=== PATIENT | female | born 1990 | race Caucasian/White ===

== ENCOUNTER 2016-06-13 10:20 | Inpatient (IN) | payer OTHER ==
[~2016-06-13] VITALS: Ht 161.3 cm; Wt 76.0 kg
[2016-06-13 11:01] VITALS: BP 129/89
[2016-06-13 11:33] LABS: BLOOD UREA NITROGEN 8 mg/dL (7-18)
[2016-06-13 11:36] LABS: ASPARTATE AMINO TRANSFERASE 12 U/L (15-37)
[2016-06-13] MEDS ORDERED: MISOPROSTOL 25 MCG TABLET ONE ×3 (12:46→16:28)
[2016-06-13] MEDS ORDERED: OXYTOCIN 30U/ 0.9% NaCL 500ML 500 ML IV ONE (12:49)
[2016-06-13] MEDS ORDERED: MISOPROSTOL 25 MCG TABLET VG PRN (13:00)
[2016-06-13] MEDS ORDERED: FENTANYL PF 100 MCG/2ML IVPush PRN (13:00)
[2016-06-13] MEDS ORDERED: ONDANSETRON 2MG/ML, 2ML IVPush PRN (13:00)
[2016-06-13] MEDS ORDERED: FENTANYL PF 100 MCG/2ML IV PRN (13:00)
[2016-06-13] MEDS ORDERED: OXYTOCIN 30U/ 0.9% NaCL 500ML 500 ML ONE (14:53)
[2016-06-13] MEDS ORDERED: NEWBORN KIT ONE (14:53)
[2016-06-13] MEDS: LACTATED RINGERS 1,000 ML IV SCH ×2 (16:43→21:11)
[2016-06-13] MEDS ORDERED: ZOLPIDEM 5MG TABLET PO PRN (18:00)
[2016-06-13] MEDS: CLINDAMYCIN PMX 900MG/50ML 50 ML IVPB SCH ×2 (18:24→21:00)
[2016-06-14] MEDS ORDERED: CLINDAMYCIN PMX 900MG/50ML 50 ML ONE ×4 (01:15→17:39)
[2016-06-14] MEDS: CLINDAMYCIN PMX 900MG/50ML 50 ML IVPB SCH ×3 (01:30→17:43)
[2016-06-14] MEDS: D5%-LACTATED RINGERS 1,000 ML IV SCH ×3 (05:11→20:25)
[2016-06-14] MEDS ORDERED: OXYTOCIN 30U/ 0.9% NaCL 500ML 500 ML IV PRN (06:00)
[2016-06-14] MEDS ORDERED: LACTATED RINGERS 1,000 ML IV SCH ×2 (08:27)
[2016-06-14] MEDS ORDERED: OXYTOCIN 30U/ 0.9% NaCL 500ML 500 ML IV SCH (08:27)
[2016-06-14] MEDS ORDERED: DOCUSATE 100 MG CAPSULE PO PRN (08:30)
[2016-06-14] MEDS ORDERED: IBUPROFEN 600 MG TABLET PO PRN (08:30)
[2016-06-14] MEDS ORDERED: MISOPROSTOL 200 MCG TABLET PR PRN ×2 (08:30→18:30)
[2016-06-14] MEDS ORDERED: OXYcodone IR 5MG TABLET PO PRN (08:30)
[2016-06-14] MEDS ORDERED: ONDANSETRON 2MG/ML, 2ML IV PRN (08:30)
[2016-06-14] MEDS ORDERED: OXYcodone/APAP 5/325MG TABLET PO PRN (08:30)
[2016-06-14] MEDS ORDERED: KETOROLAC 30 MG/1 ML IV PRN (08:30)
[2016-06-14] MEDS ORDERED: morphine SULFATE 10 MG/ML, 1ML IVPush PRN (08:30)
[2016-06-14] MEDS ORDERED: PRENATAL VIT/IRON/FA 1 EACH TABLET PO SCH (09:00)
[2016-06-14] MEDS: ACYCLOVIR 800 MG TABLET HOMEMEDPO SCH (09:00)
[2016-06-14] MEDS ORDERED: LIDOCAINE 1%, 20ML ONE (09:42)
[2016-06-14] MEDS ORDERED: MISOPROSTOL 200 MCG TABLET ONE (09:42)
[2016-06-14] MEDS ORDERED: FENTANYL/BUPIV./NS/PF 250 ML EPIDCONT SCH (09:45)
[2016-06-14] MEDS ORDERED: BUPIVACAINE/PF 0.25% ONE (09:47)
[2016-06-14] MEDS ORDERED: FENTANYL/BUPIV./NS/PF 250 ML EPIDCONT ONE (09:47)
[2016-06-14] MEDS: LACTATED RINGERS 1,000 ML IV SCH ×5 (09:48→20:49)
[2016-06-14] MEDS ORDERED: LACTATED RINGERS 1,000 ML IVBOLUS PRN (10:00)
[2016-06-14] MEDS ORDERED: EPHEDRINE 50 MG/ML, 1ML IVPush PRN (10:00)
[2016-06-14] MEDS ORDERED: NALOXONE 0.4 MG/ML, 1ML IVPush PRN (10:00)
[2016-06-14] MEDS ORDERED: LACTATED RINGERS 1,000 ML INTUTE PRN (14:00)
[2016-06-14] MEDS ORDERED: LACTATED RINGERS 1,000 ML INTUTE SCH (14:00)
[2016-06-14] MEDS ORDERED: IBUPROFEN 600 MG TABLET ONE (18:29)
[2016-06-14] MEDS ORDERED: OXYTOCIN 30U/ 0.9% NaCL 500ML 500 ML ONE (18:59)
[2016-06-14] MEDS: IBUPROFEN 600 MG TABLET PO PRN ×2 (19:01→21:17)
[2016-06-14] MEDS: OXYTOCIN 30U/ 0.9% NaCL 500ML 500 ML IV SCH (19:01)
[2016-06-14 21:15] VITALS: BP 115/70
[2016-06-14] MEDS: OXYcodone/APAP 5/325MG TABLET PO PRN (21:28)
[2016-06-14 23:30] VITALS: BP 114/72
[2016-06-15] MEDS: IBUPROFEN 600 MG TABLET PO PRN ×4 (00:51→20:42)
[2016-06-15] MEDS: DOCUSATE 100 MG CAPSULE PO PRN ×3 (00:51→20:41)
[2016-06-15] MEDS: OXYcodone/APAP 5/325MG TABLET PO PRN ×6 (01:33→22:16)
[2016-06-15] MEDS: LACTATED RINGERS 1,000 ML IV SCH ×2 (01:45→09:45)
[2016-06-15 02:34] LABS: ANISOCYTOSIS 1+; HYPOCHROMIA 1+; LARGE PLATELETS 1+
[2016-06-15 03:00] VITALS: BP 126/84
[2016-06-15] MEDS: OXYTOCIN 30U/ 0.9% NaCL 500ML 500 ML IV SCH (04:24)
[2016-06-15 07:55] VITALS: BP 123/80
[2016-06-15] MEDS: ACYCLOVIR 800 MG TABLET HOMEMEDPO SCH (09:00)
[2016-06-15] MEDS: PRENATAL VIT/IRON/FA 1 EACH TABLET PO SCH (10:40)
[2016-06-15 20:00] VITALS: BP 127/81
[2016-06-16] MEDS: IBUPROFEN 600 MG TABLET PO PRN ×2 (02:45→09:50)
[2016-06-16] MEDS: OXYcodone/APAP 5/325MG TABLET PO PRN ×4 (02:46→15:05)
[2016-06-16 08:00] VITALS: BP 120/88
[2016-06-16] MEDS: ACYCLOVIR 800 MG TABLET HOMEMEDPO SCH (09:00)
[2016-06-16] MEDS: PRENATAL VIT/IRON/FA 1 EACH TABLET PO SCH (09:50)
[2016-06-16] MEDS: DOCUSATE 100 MG CAPSULE PO PRN (09:50)
[2016-06-16] MEDS ORDERED: OXYC-302 PO (12:42)
[2016-06-16] MEDS ORDERED: IBUP800T PO (12:43)
== END 2016-06-16 15:15 | disposition home or self-care (01) | DRG 774 ==
LOC: LDOP 10:20 → LDIP 13:03 → 2NW 06-14 20:39
PROVIDERS: ADMIT Obstetrics & Gynecology; ATTEND Obstetrics & Gynecology
PROC: 10E0XZZ Delivery of Products of Conception, External Approach (ICD-10-PCS; principal; 2016-06-14)
PROC: 0KQM0ZZ Repair Perineum Muscle, Open Approach (ICD-10-PCS; 2016-06-14)
PROC: 10907ZC Drainage of Amniotic Fluid, Therapeutic from Products of Conception, Via Natural or Artificial Opening (ICD-10-PCS; 2016-06-14)
PROC: 3E033VJ Introduction of Other Hormone into Peripheral Vein, Percutaneous Approach (ICD-10-PCS; 2016-06-14)
PROC: 00HU33Z Insertion of Infusion Device into Spinal Canal, Percutaneous Approach (ICD-10-PCS; 2016-06-14)
PROC: 3E0R3CZ (ICD-10-PCS; 2016-06-14)
DX: O15.1 Eclampsia complicating labor (principal); Z37.0 Single live birth; O99.824 Streptococcus B carrier state complicating childbirth; Z3A.39 39 weeks gestation of pregnancy; O99.02 Anemia complicating childbirth; O70.1 Second degree perineal laceration during delivery
CPT/HCPCS: 36415; 80053; 81003; 82248; 82570; 84156; 84550; 85025; 86850; 86900; J2590; J3010; J7120; J7121

== ENCOUNTER 2018-12-24 09:20 | Outpatient (CLI) | payer OTHER ==
[~2018-12-24 09:20] MED LIST: IBUP-1223 PO; OXYC-302 PO
[2018-12-24] MEDS ORDERED: IBUPROFEN 600 MG TABLET ONE (09:44)
[2018-12-24] MEDS ORDERED: OXYTOCIN 30U/ 0.9% NaCL 500ML 500 ML ONE (09:47)
[2018-12-29] MEDS ORDERED: VALA1000 PO (16:09)
[2018-12-29] MEDS ORDERED: PREN1TAB60 PO (16:09)
[2018-12-31] MEDS ORDERED: IBUP-1222 PO (19:18)
[2019-01-01] MEDS ORDERED: OXYC-302 PO (11:05)
== END 2018-12-24 10:40 | disposition home or self-care (01) ==
LOC: LDOP 09:20
PROVIDERS: ATTEND Obstetrics & Gynecology
DX: O42.913 Preterm premature rupture of membranes, unspecified as to length of time between rupture and onset of labor, third trimester (principal); Z3A.36 36 weeks gestation of pregnancy
CPT/HCPCS: 59025; 84112; 99211; G0463